=== PATIENT | male | born 1955 | race Caucasian/White ===

== ENCOUNTER 2017-01-17 19:15 | Emergency (ER) | payer MEDICARE ==
[~2017-01-17] VITALS: Ht 182.9 cm; Wt 104.3 kg
[2017-01-17] MEDS ORDERED: HYDR-3816 (19:35)
[2017-01-17] MEDS ORDERED: SILD100T (19:35)
[2017-01-17] MEDS ORDERED: GABA-488 (19:35)
[2017-01-17] MEDS ORDERED: ATEN50TA (19:38)
[2017-01-17] MEDS ORDERED: HYDR25TA4 (19:38)
[2017-01-17] MEDS ORDERED: LISI10TA2 (19:38)
--- NOTE | 2017-01-17 19:44 | ED Hip Pain/Injury ---
General Chief Complaint: Hip/Pelvic Problems Stated Complaint: R HIP PAIN Source: patient, spouse Exam Limitations: no limitations History of Present Illness Time seen by provider: 19:33 Initial Comments Patient presents to ER by private conveyance with a chief complaint of right hip pain that radiates down to his right knee. He is not having any saddle anesthesia, incontinence of bowel or bladder, Weakness, numbness, tingling, falls, trauma, prior injury, prior back surgery, prior back surgery. He has had a CAT scan of his back many years ago for chronic back pain. He also was given and hydrocodone by his PCP in November for his chronic back pain. He quit smoking 20 years ago. Does not drink alcohol except occasionally and denies recreational drug use. Allergies and Home Medications Allergies Coded Allergies: Penicillins (Verified Allergy, Unknown, 01/17/17) Home Medications Gabapentin 300 Mg Capsule, (Reported) Hydrocodone/Acetaminophen 1 Each Tablet, (Reported) Sildenafil Citrate 100 Mg Tablet, (Reported) Constitutional: No chills, No diaphoresis, No fever, No malaise EENTM: No ear pain, No double vision Respiratory: No cough, No phlegm, No short of breath Cardiovascular: No chest pain, No edema, No palpitations Gastrointestinal: No abdominal pain, No constipation, No diarrhea, No nausea, No vomiting Genitourinary: No discharge, No dysuria Musculoskeletal: back pain, No joint pain, No joint swelling Skin: No pruritus, No rash Psychiatric/Neurological: Denies Headache, Denies Numbness, Denies Paresthesia , Denies Pre-Existing Deficit Past Bmtdfne-Jnxojk-Jwphir Hx Patient Social History Alcohol Use: Occasionally Uses Recreational Drug Use: No Smoking Status: Former Smoker Recent Foreign Travel: No Contact w/Someone Who Travel: No Surgeries History of Surgeries: No Respiratory History of Respiratory Disorde: No Cardiovascular History of Cardiac Disorders: Yes Cardiac Disorders: High Cholesterol, Hypertension Neurological History of Neurological Disord: No Genitourinary History of Genitourinary Disor: No Gastrointestinal History of Gastrointestinal Di: No Musculoskeletal History of Musculoskeletal Dis: Yes Musculoskeletal Disorders: Degenerate Disk Disease, Chronic Back Pain Endocrine History of Endocrine Disorders: No HEENT History of HEENT Disorders: No Cancer History of Cancer: No Psychosocial History of Psychiatric Problem: Yes Behavioral Health Disorders: Depression Integumentary History of Skin or Integumenta: No Blood Transfusions History of Blood Disorders: No Physical Exam Vital Signs Capillary Refill : Less than 3 seconds General Appearance: No Apparent Distress, WD/WN HEENT: PERRL/EOMI, Pharynx Normal Neck: Full Range of Motion, Normal Inspection, Non Tender Cardiovascular: Regular Rate, Rhythm, No Edema Respiratory: Chest Non Tender, Lungs Clear, Normal Breath Sounds Peripheral Pulses: 2+ Dorsalis Pedis (R), 2+ Left Dors-Pedis (L) Back: Normal Inspection, No CVA Tenderness, Vertebral Tenderness (lumbar region and right paraspinous soft tissue) Extremity: Normal Capillary Refill, Normal Inspection, Normal Range of Motion, Non Tender, No Calf Tenderness Neurologic/Psychiatric: Alert, Oriented x3, No Motor/Sensory Deficits Skin: Normal Color, Warm/Dry Departure Impression Impression: Primary Impression: Lumbago Qualified Codes: M54.41 - Lumbago with sciatica, right side Disposition: 01 HOME, SELF-CARE Condition: Stable Departure-Patient Inst. Decision time for Depature: 19:42 Referrals: TARIK BEST (PCP/Family) Primary Care Physician Patient Instructions: Sciatica (DC) Add. Discharge Instructions: Drink plenty of fluids and get a back brace. Wear the back brace every day that it helps you. Take Tylenol 1000 mg every day as needed for breakthrough pain. Take the Naprosyn on a scheduled basis 2 capsules twice a day for the next 2 weeks and then as needed. If he started having heartburn or chest pain immediately discontinue the Naprosyn and call your primary care physician. You could also use ibuprofen 4 tablets, 800 mg every 8 hours on schedule instead of Naprosyn. Apply heat and ice to your back as needed to control pain. Do some stretching exercises of your back and abdomen every day. Look up some strengthening exercises for your core muscles and start performing the slowly every day. Do not do anything that worsens or back pain. If you're not seeing improvement in the next 1-2 weeks you can go to a chiropractor or follow up with your primary care physician for other options. You may also take a tablet of Flexeril once every 8 hours for muscle spasms of the back. You can also start taking the prednisone 2 tablets daily to completion for 5 days. While on prednisone he may notice things like flushing in the face and difficulty getting to sleep at night. All discharge instructions reviewed with patient and/or family. Voiced understanding. Scripts Prednisone (Prednisone) 20 Mg Tab 40 MG PO DAILY, #10 TAB 0 Refills Prov: NATHAN PIERRE 01/17/17 Cyclobenzaprine HCl (Cyclobenzaprine HCl) 10 Mg Tablet 10 MG PO Q8H Y for SPASMS, #20 TAB 0 Refills Prov: NATHAN PIERRE 01/17/17 Copy Copies To 1: BOB HOUGH DO NATHAN PIERRE Jan 17, 2017 19:44
[2017-01-17] MEDS ORDERED: CYCL10TA9 PO (19:49)
[2017-01-17] MEDS ORDERED: PRD20T PO (19:49)
[2017-01-17] MEDS ORDERED: RX-CYCLOBENZAPRINE 10 MG (FLEXERIL) TAB PPK#3 PO ONE (19:53)
[2017-01-17 20:00] VITALS: BP 157/98
[2017-01-17] MEDS ORDERED: predniSONE 20 MG TAB PO ONE (20:00)
[2017-01-17] MEDS: RX-CYCLOBENZAPRINE 10 MG (FLEXERIL) TAB PPK#3 PO STA (20:00)
--- OUTSIDE RECORDS SUMMARY | 2017-01-19 10:28 | XMS REPORT ---
Author Author TARIK BEST Organization [employer] Address Unknown Phone Unavailable Care Team Providers Care Veterinary Bacteriologist Name Role Phone TARIK BEST Unavailable Allergies No Known Allergies Problems Problem Type Condition Code Onset Dates Condition Status Problem HTN (hypertension) I10 Active Problem Hyperlipemia E78.5 Active Problem Degenerative disc disease at L5-S1 level M51.36 Active Problem Depression F32.9 Active Medications No Known Medications Results No Known Results Summary Purpose [employer] Submission
--- OUTSIDE RECORDS SUMMARY | 2017-01-19 10:28 | XMS REPORT ---
Author Author TARIK BEST Organization [facility] Address [address] [place] [address] Care Team Providers Care Automation And Controls Manager Name Role Phone TARIK BEST Unavailable PROBLEMS Type Condition ICD9-CM Code [id number] Code Onset Dates Condition Status SNOMED Code Problem Depression F32.9 Active 08993467 Problem Hyperlipemia E78.5 Active 26732422 Problem Degenerative disc disease at L5-S1 level M51.36 Active 38414053 Problem Erectile dysfunction, unspecified erectile dysfunction type N52.9 Active 414693754 Problem Right elbow pain M25.521 Active 31679098 Problem Pain in right knee M25.561 Active 61659748 Problem HTN (hypertension) I10 Active 33206304 Problem Other secondary osteoarthritis of right knee M17.5 Active 437954019 Problem Other chronic pain G89.29 Active 10519856 ALLERGIES No Known Allergies SOCIAL HISTORY No smoking Hx information available PLAN OF CARE VITAL SIGNS MEDICATIONS Medication Instructions Dosage Frequency Start Date End Date Duration Status Hydrocodone-Acetaminophen 7.5-325 MG Orally 3 times a day 1 tablet as needed 8h May, 28 days Active RESULTS No Results PROCEDURES No Known procedures IMMUNIZATIONS No Known Immunizations
--- OUTSIDE RECORDS SUMMARY | 2017-01-19 10:28 | XMS REPORT ---
Author Author TARIK BEST Organization [employer] Address Unknown Phone Unavailable Care Team Providers Care Garment Parts Cutter Machine Name Role Phone TARIK BEST Unavailable Allergies No Known Allergies Problems Problem Type Condition Code Onset Dates Condition Status Problem HTN (hypertension) I10 Active Problem Hyperlipemia E78.5 Active Problem Degenerative disc disease at L5-S1 level M51.36 Active Problem Depression F32.9 Active Medications No Known Medications Results No Known Results Summary Purpose [employer] Submission
--- OUTSIDE RECORDS SUMMARY | 2017-01-19 10:28 | XMS REPORT ---
Author Author TARIK BEST [facility] [employer] Address Unknown Phone Unavailable Care Team Providers Care Staffing Manager Name Role Phone TARIK BEST Unavailable Allergies No Known Allergies Problems Problem Type Condition Code Onset Dates Condition Status Problem HTN (hypertension) I10 Active Problem Hyperlipemia E78.5 Active Problem Degenerative disc disease at L5-S1 level M51.36 Active Problem Depression F32.9 Active Medications Medication Code System Code Instructions Start Date End Date Status Dosage Hydrocodone-Acetaminophen [facility] [address]-55 7.5-325 MG Orally 3 times a day 1 tablet as needed Results No Known Results Summary Purpose [employer]ClinicalWorks Submission
--- OUTSIDE RECORDS SUMMARY | 2017-01-19 10:28 | XMS REPORT ---
Author Author TARIK BEST Organization [employer] Address Unknown Phone Unavailable Care Team Providers Care Studio Model Name Role Phone TARIK BEST Unavailable Allergies No Known Allergies Problems Problem Type Condition Code Onset Dates Condition Status Problem HTN (hypertension) I10 Active Problem Hyperlipemia E78.5 Active Problem Degenerative disc disease at L5-S1 level M51.36 Active Problem Depression F32.9 Active Medications No Known Medications Results No Known Results Summary Purpose [employer]Works Submission
--- OUTSIDE RECORDS SUMMARY | 2017-01-19 10:28 | XMS REPORT ---
Author TARIK Stevenson [facility] [employer] Address Unknown Phone Unavailable Care Team Providers Care Candy Vendor Name Role Phone TARIK BEST CP Unavailable Allergies, Adverse Reactions, Alerts Substance Reaction Event Type Penicillin V Potassium hives Drug Allergy Problems Problem Type Condition Code Onset Dates Condition Status Assessment Hyperlipemia E78.5 Active Problem HTN (hypertension) I10 Active Problem Hyperlipemia E78.5 Active Problem Degenerative disc disease at L5-S1 level M51.36 Active Assessment Depression F32.9 Active Assessment HTN (hypertension) I10 Active Problem Depression F32.9 Active Assessment Degenerative disc disease at L5-S1 level M51.36 Active Medications Medication Code System Code Instructions Start Date End Date Status Dosage Atenolol [facility] [address]-51 50 MG Orally Once a day 1 tablet Hydrochlorothiazide [facility] [address]-26 25 MG Orally Once a day 1 tablet Atorvastatin Calcium [facility] [address]-78 40 MG Orally Once a day 1 tablet Lisinopril [facility] [address]-91 10 MG Orally Once a day 1 tablet Hydrocodone-Acetaminophen [facility] [address]-59 7.5-325 MG Orally 3 times a day 1 tablet as needed Gabapentin [facility] [address]-66 300 MG Orally 2 times a day Feb 12, 2015 1 capsule Meloxicam [facility] [address]-45 7.5 MG Orally 2 times a day Jul 03, 2015 1 tablet Cymbalta [facility] [address]-80 60 MG Orally Once a day Feb 12, 2015 1 capsule Procedures Procedure Coding System Code Date Office Visit, Est Pt., Level 4 CPT-4 01229 May 28, 2015 [facility] VISIT ESTABLISHED PATIENT CPT-4 G0467 May 28, 2015 Vital Signs Date/Time: May 28, 2015 Temperature 98.0 F Weight 255.6 lbs Height 71.0 in BMI 35.65 Index Blood Pressure Diastolic 82 mmHg Blood Pressure Systolic 138 mmHg Cardiac Monitoring Heart Rate 86 bpm Results No Known Results Summary Purpose eClinicalWorks Submission
--- OUTSIDE RECORDS SUMMARY | 2017-01-19 10:28 | XMS REPORT ---
Author Author TARIK BEST Organization [employer] Address Unknown Phone Unavailable Care Team Providers Care Leather Products Supervisor Name Role Phone TARIK BEST CP Unavailable Allergies, Adverse Reactions, Alerts Substance Reaction Event Type Penicillin V Potassium hives Drug Allergy Problems Problem Type Condition Code Onset Dates Condition Status Assessment Depression F32.9 Active Problem Depression F32.9 Active Problem Hypertension 401.9 Active Problem Degenerative disc disease, lumbar M51.36 Active Assessment Hyperlipidemia 272.4 Active Assessment Degenerative disc disease, lumbar M51.36 Active Problem Hyperlipidemia 272.4 Active Assessment Hypertension 401.9 Active Medications Medication Code System Code Instructions Start Date End Date Status Dosage Meloxicam [facility] [address]-41 7.5 MG Orally 2 times a day Jul 03, 2015 1 tablet Atorvastatin Calcium [facility] [address]-17 40 MG Orally Once a day 1 tablet Cymbalta [facility] [address]-97 60 MG Orally Once a day Feb 12, 2015 1 capsule Hydrochlorothiazide [facility] [address]-45 25 MG Orally Once a day 1 tablet Lisinopril [facility] [address]-71 10 MG Orally Once a day 1 tablet Atenolol [facility] [address]-32 50 MG Orally Once a day 1 tablet Gabapentin [facility] [address]-30 300 MG Orally 2 times a day Feb 12, 2015 1 capsule Procedures Procedure Coding System Code Date Office Visit, Est Pt., Level 4 CPT-4 13134 Mar 26, 2015 No Charge CPT-4 35607 Mar 26, 2015 [facility] VISIT ESTABLISHED PATIENT CPT-4 G0467 Mar 26, 2015 DRUG SCREEN NON TLC DEVICES CPT-4 97784 Mar 26, 2015 Vital Signs Date/Time: Mar 26, 2015 Temperature 98.1 F Weight 251.6 lbs Height 71.0 in BMI 35.09 Index Blood Pressure Diastolic 84 mmHg Blood Pressure Systolic 130 mmHg Cardiac Monitoring Heart Rate 78 bpm Results Name Result Date Reference Range Unit Abnormality Flag URINE DRUG SCREEN (IN HOUSE) Summary Purpose eClinicalWorks Submission
--- OUTSIDE RECORDS SUMMARY | 2017-01-19 10:28 | XMS REPORT ---
Author Author TARIK BEST Organization [employer] Address Unknown Phone Unavailable Care Team Providers Care Appliance Line Assembler Name Role Phone TARIK BEST Unavailable Allergies No Known Allergies Problems Problem Type Condition Code Onset Dates Condition Status Problem HTN (hypertension) I10 Active Problem Hyperlipemia E78.5 Active Problem Degenerative disc disease at L5-S1 level M51.36 Active Problem Depression F32.9 Active Medications No Known Medications Results No Known Results Summary Purpose [employer]ClinicalWorks Submission
--- OUTSIDE RECORDS SUMMARY | 2017-01-19 10:28 | XMS REPORT ---
Author Author TARIK BEST Organization [employer] Address Unknown Phone Unavailable Care Team Providers Care Nut Feeder Name Role Phone TARIK BEST Unavailable Allergies No Known Allergies Problems Problem Type Condition Code Onset Dates Condition Status Problem HTN (hypertension) I10 Active Problem Hyperlipemia E78.5 Active Problem Degenerative disc disease at L5-S1 level M51.36 Active Problem Depression F32.9 Active Medications No Known Medications Results No Known Results Summary Purpose [employer]ClinicalWorks Submission
--- OUTSIDE RECORDS SUMMARY | 2017-01-19 10:28 | XMS REPORT ---
Author Author LETICIA BETANCOURT Organization [employer] Address Unknown Phone Unavailable Care Team Providers Care Under Baster Name Role Phone LETICIA BETANCOURT CP Unavailable Allergies, Adverse Reactions, Alerts Substance Reaction Event Type Penicillin V Potassium hives Drug Allergy Problems Problem Type Condition ICD-9 Code Onset Dates Condition Status Problem Hyperlipidemia 272.4 Active Assessment Back pain 724.5 Active Problem Hypertension 401.9 Active Medications Medication Code System Code Instructions Start Date End Date Status Dosage Hydrochlorothiazide [facility] [address]-74 25 MG Orally Once a day [address] [facility] [address]-40 10 MG Orally Once a day [address] [facility] [address]-39 7.5 MG Orally 2 times a day Jul 03, 2015 1 tablet Hydrocodone-Acetaminophen [facility] [address]-24 7.5-325 MG Orally 2 times a day 1 tablet as needed Atorvastatin Calcium [facility] [address]-79 40 MG Orally Once a day [address] [facility] [address]-81 50 MG Orally Once a day 1 tablet Bu[address]ion HCl [facility] [address]-33 150 MG Orally Once a day 1 tablet Procedures Procedure Coding System Code Date Office Visit, Est Pt., Level 2 CPT-4 03250 Jan 11, 2015 Vital Signs Date/Time: Jan 11, 2015 Temperature 98.2 F Weight 250.4 lbs Height 6.0 in BMI 4,889.76 Index Blood Pressure Diastolic 82 mmHg Blood Pressure Systolic 132 mmHg Cardiac Monitoring Heart Rate 62 bpm Results No Known Results Summary Purpose eClinicalWorks Submission
--- OUTSIDE RECORDS SUMMARY | 2017-01-19 10:28 | XMS REPORT ---
Author Author TARIK BEST Organization [employer] Address Unknown Phone Unavailable Care Team Providers Care Stoker Erector Name Role Phone TARIK BEST Unavailable Allergies No Known Allergies Problems Problem Type Condition Code Onset Dates Condition Status Problem Depression F32.9 Active Problem Hypertension 401.9 Active Problem Degenerative disc disease, lumbar M51.36 Active Problem Hyperlipidemia 272.4 Active Medications Medication Code System Code Instructions Start Date End Date Status Dosage Gabapentin [facility] [address]-66 300 MG Orally 2 times a day Feb 12, 2015 1 capsule Cymbalta [facility] [address]-77 60 MG Orally Once a day Feb 12, 2015 1 capsule Results No Known Results Summary Purpose eClinicalWorks Submission
--- OUTSIDE RECORDS SUMMARY | 2017-01-19 10:29 | XMS REPORT ---
Author TARIK Stevenson [facility] e[employer] Address Unknown Phone Unavailable Care Team Providers Care Human Resource Assistant Name Role Phone TARIK BEST CP Unavailable Allergies, Adverse Reactions, Alerts Substance Reaction Event Type Penicillin V Potassium hives Drug Allergy Problems Problem Type Condition Code Onset Dates Condition Status Assessment HTN (hypertension) I10 Active Assessment Degenerative disc disease at L5-S1 level M51.36 Active Assessment Depression F32.9 Active Problem Other chronic pain G89.29 Active Problem Pain in right knee M25.561 Active Problem Other secondary osteoarthritis of right knee M17.5 Active Problem Hyperlipemia E78.5 Active Problem Depression F32.9 Active Problem Degenerative disc disease at L5-S1 level M51.36 Active Problem HTN (hypertension) I10 Active Assessment Other chronic pain G89.29 Active Assessment Pain in right knee M25.561 Active Assessment Other secondary osteoarthritis of right knee M17.5 Active Assessment Hyperlipemia E78.5 Active Medications Medication Code System Code Instructions Start Date End Date Status Dosage Atorvastatin Calcium [facility] [address]-29 40 MG Orally Once a day 1 tablet Atenolol [facility] [address]-08 50 MG Orally Once a day 1 tablet Hydrochlorothiazide [facility] [address]-01 25 MG Orally Once a day 1 tablet Duloxetine HCl [facility] [address]-53 60 mg Orally Once a day 1 capsule Hydrocodone-Acetaminophen [facility] [address]-37 7.5-325 MG Orally 3 times a day Apr 04, 2016 1 tablet as needed Gabapentin [facility] [address]-76 300 MG Orally 2 times a day Feb 12, 2015 1 capsule Lisinopril [facility] [address]-31 10 MG Orally Once a day 1 tablet Procedures Procedure Coding System Code Date [facility] VISIT ESTABLISHED PATIENT CPT-4 G0467 Apr 04, 2016 Office Visit, Est Pt., Level 4 CPT-4 43454 Apr 04, 2016 DRUG SCREEN NON TLC DEVICES CPT-4 53316 Apr 04, 2016 Vital Signs Date/Time: Apr 04, 2016 Cardiac Monitoring Heart Rate 72 bpm Weight 242 lbs Height 71.0 in BMI 33.75 Index Blood Pressure Diastolic 88 mmHg Blood Pressure Systolic 138 mmHg Results Name Result Date Reference Range Unit Abnormality Flag URINE DRUG SCREEN (IN HOUSE) ----BUP negative 20160404 ----TCA negative 20160404 ----MDMA negative 20160404 ----BENZO negative 20160404 ----OPIATE negative 20160404 ----THC negative 20160404 ----MTD negative 20160404 ----AMPH negative 20160404 ----BAR negative 20160404 ----PCP negative 20160404 ----MAMP negative 20160404 ----OXY negativeq 20160404 ----Lot # [id number] ----Exp date 20160404 ----Control + 20160404 ----COCAINE negative 20160404 Xray : Knee, Left 3 views (IN HOUSE) Summary Purpose eClinicalWorks Submission
--- OUTSIDE RECORDS SUMMARY | 2017-01-19 10:29 | XMS REPORT | Continuity of Care Document ---
Author Author [facility] Organization [facility] Address Unknown Phone Unavailable Allergies Medications Problems Date Dx Coded Attending Type Code Diagnosis Diagnosed By 05/16/2015 TARIK BEST Ot M51.36 06/04/2015 ATRIK BEST Ot M51.36 01/17/2017 TARIK BEST Ot M51.36 OTHER INTERVERTEBRAL DISC DEGENERATION, 01/17/2017 TARIK BEST Ot M51.36 OTHER INTERVERTEBRAL DISC DEGENERATION, Procedures Results Encounters ACCT No. Visit Date/Time Discharge Status Pt. Type Provider Facility Loc./Unit Complaint [id number] 01/17/2017 19:17:00 2016 20:00:00 DIS Emergency GABBY VALERIO, NATHAN Villafana [facility] ER R HIP PAIN [id number] 05/11/2015 08:39:00 2014 23:59:59 CLS Outpatient TARIK BEST [facility] RAD DDJD
--- OUTSIDE RECORDS SUMMARY | 2017-01-19 10:29 | XMS REPORT ---
Author Author TARIK BEST [facility] eClinicalWorks Address Unknown Phone Unavailable Care Team Providers Care Certified Nurses Aide Name Role Phone TARIK BEST CP Unavailable [...] Instructions Start Date End Date Status Dosage Cymbalta [facility] [address]-72 60 MG Orally Once a day Feb 12, 2015 1 capsule Hydrocodone-Acetaminophen [facility] [address]-47 7.5-325 MG Orally 3 times a day 1 tablet as needed Hydrochlorothiazide [facility] [address]-83 25 MG Orally Once a day 1 tablet Atenolol [facility] [address]-82 50 MG Orally Once a day 1 tablet Lisinopril [facility] [address]-15 10 MG Orally Once a day 1 tablet Atorvastatin Calcium [facility] [address]-38 40 MG Orally Once a day 1 tablet Meloxicam [facility] [address]-36 7.5 MG Orally 2 times a day Jul 03, 2015 1 tablet Gabapentin [facility] [address]-46 300 MG Orally 2 times a day Feb 12, 2015 1 capsule Procedures Procedure Coding System Code Date Office Visit, Est Pt., Level 4 CPT-4 24001 Apr 27, 2015 [facility] VISIT ESTABLISHED PATIENT CPT-4 G0467 Apr 27, 2015 Vital Signs Date/Time: Apr 27, 2015 Temperature 97.9 F Weight 256.6 lbs Height 71.0 in BMI 35.78 Index Blood Pressure Diastolic 100 mmHg Blood Pressure Systolic 160 mmHg Cardiac Monitoring Heart Rate 76 bpm Results No Known Results Summary Purpose eClinicalWorks Submission
--- OUTSIDE RECORDS SUMMARY | 2017-01-19 10:29 | XMS REPORT ---
Author Author LETICIA BETANCOURT Organization [employer] Address Unknown Phone Unavailable Care Team Providers Care Brass Sorter Name Role Phone LETICIA BETANCOURT CP Unavailable Allergies No Known Allergies Problems Problem Type Condition Code Onset Dates Condition Status Problem Hyperlipidemia 272.4 Active Assessment Back pain 724.5 Active Problem Hypertension 401.9 Active Assessment Hypertension 401.9 Active Medications No Known Medications Procedures Procedure Coding System Code Date VENIPUNCT, ROUTINE* CPT-4 80170 Mar 23, 2015 X-RAY EXAM OF LOWER SPINE CPT-4 83722 Mar 23, 2015 [facility] NOBLL Mar 23, 2015 Results Name Result Date Reference Range Unit Abnormality Flag ROUTINE VENIPUNCTURE Summary Purpose eClinicalWorks Submission
== END 2017-01-17 20:00 | disposition home or self-care (01) ==
LOC: EDUNIT# 19:15 → ER 19:17
DX: M54.5 Low back pain (principal); E78.00 Pure hypercholesterolemia, unspecified; I10 Essential (primary) hypertension; F32.9 Major depressive disorder, single episode, unspecified; Z87.891 Personal history of nicotine dependence
CPT/HCPCS: 99283